=== PATIENT | male | born 1945 | race Caucasian/White ===

== ENCOUNTER 2018-03-18 18:26 | Emergency (ER) | payer MEDICARE, OTHER ==
[~2018-03-18] VITALS: Ht 185.4 cm; Wt 62.0 kg
[2018-03-18 19:19] LABS: BASOPHILS # (AUTO) 0.01 x10^3/uL (0-0.1); BASOPHILS % (AUTO) 0 % (0-1); EOSINOPHILS # (AUTO) 0.06 x10^3/uL (0-0.4); EOSINOPHILS % (AUTO) 1 % (1-7); LYMPHOCYTES # (AUTO) 0.64 x10^3/uL (1-3.4); LYMPHOCYTES % (AUTO) 15 % (22-44); MD NO; MEAN CORPUSCULAR HEMOGLOBIN 32.5 pg (27.5-34.5); MEAN CORPUSCULAR HGB CONC 34.3 g/dL (33.2-36.2); MEAN CORPUSCULAR VOLUME 94.7 fL (81-97); MEAN PLATELET VOLUME 8.8 fL (7.4-10.4); MONOCYTES # (AUTO) 0.33 x10^3/uL (0.2-0.8); MONOCYTES % (AUTO) 7 % (2-9); NEUTROPHILS # (AUTO) 3.38 x10^3/uL (1.8-6.8); NEUTROPHILS % (AUTO) 77 % (42-75); PLATELET COUNT 170 x10^3/uL (130-400); RED BLOOD COUNT 4.42 x10^6/uL (4.38-5.82); RED CELL DISTRIBUTION WIDTH 12.8 % (9.4-14.8)
[2018-03-18 19:28] LABS: ALANINE AMINOTRANSFERASE 22 U/L (12-78); ALBUMIN 3.5 g/dL (3.4-5.0); ANION GAP 5 mmol/L (5-15); CALCIUM 8.8 mg/dL (8.5-10.1); CHLORIDE 106 mmol/L (98-107); CREATININE 1.15 mg/dL (0.7-1.3); SALICYLATE LEVEL < 1.7 mg/dL (2.8-20.0)
[2018-03-18 19:30] LABS: ALKALINE PHOSPHATASE 61 U/L (45-117); BILIRUBIN,TOTAL 0.8 mg/dL (0.2-1.0); TOTAL PROTEIN 6.2 g/dL (6.4-8.2)
--- NOTE | 2018-03-18 19:33 | NUR ---
Pt up to bedside for ua, states he is unable to urinate at this time but willing to try again shortly. Family remains at bedside for safetly.
[2018-03-18 19:42] LABS: ACETAMINOPHEN < 2 mcg/mL (10-30)
--- NOTE | 2018-03-18 19:43 | NUR ---
OK to give pt water per MD, pt still unable to urinate, agrees to keep trying, family remains at bedside, PT on cont cardiac and pulse ox monitoring.
--- NOTE | 2018-03-18 19:44 | NUR ---
Per family pt too 10 of his 10mg ambien, not xanax earlier this am. Family states pt has since been stumbling and falling and altered. Pt alert and oriented x4 upon RN assesment, small skin abrasion to midline lower back, pt remembers falling but unsure what he fell into. No other obv injuries noted.
[2018-03-18 20:50] LABS: MICROSCOPIC INDICATED
[2018-03-18 20:51] LABS: CULTURE INDICATED? YES
[2018-03-18 21:12] LABS: AMPHETAMINE SCREEN, URINE Negative (Negative); BARBITURATE SCREEN, URINE Negative (Negative); BENZODIAZEPINE SCREEN, URINE Negative (Negative); CANNABINOID SCREEN, URINE Negative (Negative); COCAINE SCREEN, URINE Negative (Negative); METHADONE SCREEN, URINE Negative (Negative); OPIATE SCREEN, URINE Negative (Negative)
--- NOTE | 2018-03-18 21:22 | NUR ---
Per MD pt to be held in ED for 4 hrs (midnight) after talking to poison control
--- NOTE | 2018-03-18 22:10 | NUR ---
Per MD pt okay to be discharged at 4 hr neyda, starting time is triage time. Pt appears more alert and conversational with RN than on first assesment, family agrees with assesment. Pt verbalized eagerness for discharge.
[2018-03-18 22:17] VITALS: BP 122/62
--- NOTE | 2018-03-18 22:29 | NUR ---
PT AMBULATED WITH STEADY GAIT TO REG, DCD WITH FAMILY
== END 2018-03-18 22:30 | disposition home or self-care (01) ==
LOC: ED 18:52
DX: T50.901A Poisoning by unspecified drugs, medicaments and biological substances, accidental (unintentional), initial encounter (principal); X58.XXXA Exposure to other specified factors, initial encounter; Y93.89 Activity, other specified; Y92.89 Other specified places as the place of occurrence of the external cause; Y99.8 Other external cause status
CPT/HCPCS: 36415; 80053; 80307; 80329; 81001; 85025; 87086; 99283; G0480

== ENCOUNTER 2019-07-01 21:51 | Observation (INO) | payer MEDICARE ==
[~2019-07-01] VITALS: Ht 185.4 cm; Wt 60.1 kg
--- NOTE | 2019-07-01 22:07 | NUR ---
Patient BIB [facility] with ALOC since tonight. Patient's found him on the floor in the house and patient was altered with slurred speech. Rest of stroke exam negative. EMS states approx 50 mg of Flexeril was unaccounted for. Patient denies pain anywhere. He states "I fell out of my 's car." Patient is in NAD. Respirations even and unlabored.
[2019-07-01 22:23] LABS: BASOPHILS # (AUTO) 0.01 x10^3/uL (0-0.1); BASOPHILS % (AUTO) 0 % (0-1); EOSINOPHILS # (AUTO) 0.07 x10^3/uL (0-0.4); EOSINOPHILS % (AUTO) 2 % (1-7); LYMPHOCYTES # (AUTO) 0.59 x10^3/uL (1-3.4); LYMPHOCYTES % (AUTO) 13 % (22-44); MD NO; MEAN CORPUSCULAR HEMOGLOBIN 31.8 pg (27.5-34.5); MEAN CORPUSCULAR HGB CONC 33.7 g/dL (33.2-36.2); MEAN CORPUSCULAR VOLUME 94.4 fL (81-97); MEAN PLATELET VOLUME 8.1 fL (7.4-10.4); MONOCYTES # (AUTO) 0.34 x10^3/uL (0.2-0.8); MONOCYTES % (AUTO) 8 % (2-9); NEUTROPHILS # (AUTO) 3.47 x10^3/uL (1.8-6.8); NEUTROPHILS % (AUTO) 77 % (42-75); PLATELET COUNT 205 x10^3/uL (130-400); RED BLOOD COUNT 4.22 x10^6/uL (4.38-5.82); RED CELL DISTRIBUTION WIDTH 13.2 % (9.4-14.8)
--- NOTE | 2019-07-01 22:28 | NUR ---
Patient in CT.
--- NOTE | 2019-07-01 22:31 | NUR ---
Spoke with ; she states she found him on the floor with the guitar knocked over. She thinks he may have hit his head on it. states patient reports over the last couple days, his left arm has been weak. 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
[2019-07-01 22:32] LABS: ALANINE AMINOTRANSFERASE 18 U/L (12-78); ALBUMIN 3.6 g/dL (3.4-5.0); ANION GAP 4 mmol/L (5-15); CALCIUM 8.8 mg/dL (8.5-10.1); CHLORIDE 103 mmol/L (98-107); CREATININE 1.19 mg/dL (0.7-1.3)
--- NOTE | 2019-07-01 22:35 | NUR ---
Isha Brice-bryan
[2019-07-01 22:37] LABS: ALKALINE PHOSPHATASE 48 U/L (45-117); TOTAL PROTEIN 6.5 g/dL (6.4-8.2); TROPONIN I < 0.015 ng/mL (0.000-0.045)
[2019-07-01 22:39] LABS: SALICYLATE LEVEL < 1.7 mg/dL (2.8-20.0)
--- NOTE | 2019-07-01 23:04 | NUR ---
Patient unable to provide urine due to ALOC. Performed straight cath.
[2019-07-01 23:10] LABS: MICROSCOPIC INDICATED
[2019-07-01 23:20] LABS: AMPHETAMINE SCREEN, URINE Negative (Negative); BARBITURATE SCREEN, URINE Negative (Negative); BENZODIAZEPINE SCREEN, URINE Negative (Negative); CANNABINOID SCREEN, URINE Negative (Negative); COCAINE SCREEN, URINE Negative (Negative); METHADONE SCREEN, URINE Negative (Negative); OPIATE SCREEN, URINE Negative (Negative)
[2019-07-01] MEDS ORDERED: LEVO100T5 PO (23:37)
[2019-07-01] MEDS ORDERED: ZOLP10TA PO (23:37)
[2019-07-01] MEDS ORDERED: MELO15TA24 PO (23:37)
[2019-07-01] MEDS ORDERED: OMEP-110 PO (23:37)
[2019-07-01] MEDS ORDERED: CYCL-259 PO (23:37)
--- NOTE | 2019-07-01 23:52 | NUR ---
Report given to Kiley. Patient to be transferred to room 410.
[2019-07-02 00:09] VITALS: BP 149/79
[2019-07-02 00:20] VITALS: BP 159/74
[2019-07-02] MEDS ORDERED: POLYETHYLENE GLYCOL 17 GM PACKET PO PRN (00:30)
[2019-07-02] MEDS ORDERED: ACETAMINOPHEN 325 MG TABLET PO PRN (00:30)
[2019-07-02] MEDS ORDERED: ONDANSETRON 2MG/ML, 2ML IVPush PRN (00:30)
[2019-07-02] MEDS ORDERED: BISACODYL 10 MG SUPP PR PRN (00:30)
[2019-07-02] MEDS: SODIUM CHLORIDE 0.9% 1,000 ML IV SCH ×2 (02:06→15:35)
[2019-07-02 05:44] LABS: TROPONIN I < 0.015 ng/mL (0.000-0.045)
[2019-07-02] MEDS: LEVOTHYROXINE 100 MCG TABLET PO SCH (06:10)
[2019-07-02 06:48] VITALS: BP 142/81
--- NOTE | 2019-07-02 08:02 | NUR ---
REC: REGULAR/ THINS Addendum: 07/02/19 at [address] Amended: Links added.
[2019-07-02] MEDS: OMEPRAZOLE 20 MG CAPSULE.DR PO SCH (08:25)
[2019-07-02] MEDS: SENNA/DOCUSATE TABLET PO SCH (08:25)
[2019-07-02] MEDS ORDERED: SUMA100T4 PO (10:32)
[2019-07-02 11:23] LABS: TROPONIN I < 0.015 ng/mL (0.000-0.045)
[2019-07-02 13:35] VITALS: BP 136/73
[2019-07-02] MEDS: SUMATRIPTAN 100 MG TABLET PO PRN (19:39)
[2019-07-02 20:00] VITALS: BP 133/76
[2019-07-03 02:17] VITALS: BP_SYST 147; BP_SYST 157; BP_DIAS 81; BP_DIAS 86
[2019-07-03] MEDS: SUMATRIPTAN 100 MG TABLET PO PRN (02:34)
[2019-07-03] MEDS: SODIUM CHLORIDE 0.9% 1,000 ML IV SCH ×2 (02:35→16:30)
[2019-07-03] MEDS: LEVOTHYROXINE 100 MCG TABLET PO SCH (05:06)
[2019-07-03 05:46] LABS: BASOPHILS # (AUTO) 0.03 x10^3/uL (0-0.1); BASOPHILS % (AUTO) 1 % (0-1); EOSINOPHILS # (AUTO) 0.08 x10^3/uL (0-0.4); EOSINOPHILS % (AUTO) 2 % (1-7); LYMPHOCYTES # (AUTO) 0.82 x10^3/uL (1-3.4); LYMPHOCYTES % (AUTO) 17 % (22-44); MD NO; MEAN CORPUSCULAR HEMOGLOBIN 31.2 pg (27.5-34.5); MEAN CORPUSCULAR HGB CONC 33.2 g/dL (33.2-36.2); MEAN CORPUSCULAR VOLUME 93.8 fL (81-97); MEAN PLATELET VOLUME 8.1 fL (7.4-10.4); MONOCYTES # (AUTO) 0.38 x10^3/uL (0.2-0.8); MONOCYTES % (AUTO) 8 % (2-9); NEUTROPHILS # (AUTO) 3.67 x10^3/uL (1.8-6.8); NEUTROPHILS % (AUTO) 74 % (42-75); PLATELET COUNT 219 x10^3/uL (130-400); RED BLOOD COUNT 4.51 x10^6/uL (4.38-5.82); RED CELL DISTRIBUTION WIDTH 13.1 % (9.4-14.8)
[2019-07-03 05:52] LABS: ANION GAP 4 mmol/L (5-15); CALCIUM 8.9 mg/dL (8.5-10.1); CHLORIDE 105 mmol/L (98-107); CREATININE 0.98 mg/dL (0.7-1.3)
[2019-07-03 08:22] VITALS: BP 145/81
[2019-07-03] MEDS: SENNA/DOCUSATE TABLET PO SCH (08:22)
[2019-07-03] MEDS: OMEPRAZOLE 20 MG CAPSULE.DR PO SCH (08:22)
[2019-07-03] MEDS ORDERED: SERTRALINE 50MG TABLET PO SCH (09:00)
[2019-07-03 14:45] VITALS: BP 144/85
[2019-07-03] MEDS ORDERED: SERT50TA28 PO (15:13)
== END 2019-07-03 16:56 | disposition home or self-care (01) ==
LOC: ED 23:31 → INTOOBSV 23:33 → EDIP 23:33 → 4WST 23:58
PROVIDERS: ADMIT Internal Medicine; ATTEND Family Medicine
DX: F32.9 Major depressive disorder, single episode, unspecified (principal); R41.82 Altered mental status, unspecified; G89.29 Other chronic pain; K21.9 Gastro-esophageal reflux disease without esophagitis; E03.9 Hypothyroidism, unspecified; I25.2 Old myocardial infarction; G92 Toxic encephalopathy; Z87.891 Personal history of nicotine dependence; Z79.1 Long term (current) use of non-steroidal anti-inflammatories (NSAID); Z79.899 Other long term (current) drug therapy; Z87.898 Personal history of other specified conditions
CPT/HCPCS: 36415; 70450; 80048; 80053; 80307; 81001; 82140; 82306; 83735; 84443; 84484; 85025; 92610; 93005; 96360; 96361; 97161; 99285; G0378; J7030